=== PATIENT | female | born 1995 | race Caucasian/White ===

== ENCOUNTER 2018-05-14 03:22 | Inpatient (IN) | payer SELFPAY ==
[2018-05-14] MEDS ORDERED: Naloxone HCl 2 mg/2 ml Syringe ONE (03:23)
[2018-05-14] MEDS ORDERED: Propofol 1,000 MG/100 ML VIAL IV ONE (03:32)
[2018-05-14 03:49] LABS: #Basophils 0.2 thou/uL (0.0-0.2); #Eosinphils 0.4 thou/uL (0.0-0.7); #Lymphocytes 4.7 thou/uL (1.20-3.40); #Monocytes 0.7 thou/uL (0.11-0.59); %Basophils 1.3 % (0.0-1.0); %Eosinophils 3.5 % (0.0-10.0); %Lymphocytes 39.1 % (21.0-51.0); %Monocytes 6.1 % (0.0-10.0); Mean Corpuscular HGB CONC 33.4 g/dL (32.0-36.0); Mean Corpuscular Hemoglobin 29.8 pg (27.0-31.0); Mean Corpuscular Volume 89.1 fL (78.0-98.0); Mean Platelet Volume 6.4 fL (7.4-10.4); Platelet Count 445 thou/uL (130-400); RBC Distribution Width 12.2 % (11.5-14.5)
[2018-05-14 04:02] LABS: Bilirubin Negative (Negative); Blood, Urine Negative (Negative); Clarity CLOUDY (Clear); Glucose, Urine (Dipstick) Negative (Negative); Leukocyte Small (Negative); Nitrite Negative (Negative); Pregnancy Test - Urine (BHCG) Negative (Negative); Protein, Urine (Dipstick) 30 mg/dL (Neg-Trace); Specific Gravity, Urine 1.023 (1.002-1.036); pH, Urine 6.5 (5.0-9.0)
[2018-05-14 04:03] LABS: Pregu Control Background? CLEAR/WHITE (CLR/WHITE); Pregu Control Bar Appear? YES (CONTROL BAR); Specific Gravity 1.023 (1.002-1.036)
[2018-05-14 04:05] LABS: Bacteria/HPF None Seen HPF (None Seen); RBC/HPF 0-3 HPF (0-3)
[2018-05-14 04:12] LABS: Pathc Cast-AUWi Flag 3.77 (0-2.49)
[2018-05-14 04:14] LABS: Amphetamine Detected (NotDetected); Barbiturates Screen Not Detected (NotDetected); Benzodiazepine Screen Not Detected (NotDetected); Cocaine Metabolite Screen Not Detected (NotDetected); Medtox Control Line Valid? VALID (VALID); Medtox Reader # READER 4; Methadone Not Detected (NotDetected); Methamphetamine Not Detected (NotDetected); Opiate Screen Not Detected (NotDetected); Oxycodone Screen Not Detected (NotDetected); Phencyclidine (PCP) Not Detected (NotDetected); THC/Cannabinoid Screen Detected (NotDetected); Tricyclic Screen Not Detected (NotDetected)
[2018-05-14 04:19] LABS: Hyaline Casts/LPF 0-3 HYALINE CAST LPF (0-3 Hyaline)
[2018-05-14 04:20] LABS: Other Casts/LPF None Seen LPF (0-3 Hyaline); Oval Fat Bodies/HPF None Seen HPF (None Seen); Renal Epithelial None Seen HPF (0-3); Sperm/HPF None Seen HPF (None Seen); Transitional Epithelial NONE SEEN HPF (0-3); Trichomonas/HPF None Seen HPF (None Seen); Yeast-All Forms None Seen HPF (None Seen)
[2018-05-14 04:23] LABS: Acetaminophen Less than 6.0 mcg/mL (10.0-30.0); Alcohol Less than 10 mg/dL (Less than 10); Salicylate Less than 8.0 mg/dL (15.0-30.0)
[2018-05-14 04:24] LABS: ALT (SGPT) 62 U/L (8-55); AST (SGOT) 37 U/L (5-34); Albumin 4.5 g/dL (3.5-5.0); Alkaline Phosphatase 94 U/L (40-150); Anion Gap 16 mmol/L (10-20); BUN (Urea Nitrogen) 12 mg/dL (7.0-18.7); Bilirubin, Total 0.3 mg/dL (0.2-1.2); Calc. Creatinine Clearance 0 mL/min (70-130); Calcium 10.1 mg/dL (7.8-10.44); Carbon Dioxide 20 mmol/L (22-29); Chloride 105 mmol/L (98-107); Estimated GFR-MDRD 79; Globulin 3.3 g/dL (2.4-3.5); Glucose 177 mg/dL (70-105); Magnesium 2.2 mg/dL (1.6-2.6); Potassium 3.5 mmol/L (3.5-5.1); Protein, Total 7.8 g/dL (6.0-8.3); Sodium 137 mmol/L (136-145)
[2018-05-14 04:31] LABS: Troponin I Less than 0.010 ng/mL (< 0.028)
[2018-05-14 04:41] LABS: Analyzer IN Cardio ER; Base Excess (BEa) -2.7 mEq/L (-2.0 to +3.0); CO2 Tension 28.6 mmHg (35.0-45.0); Calcium, Ionized 1.15 mmol/L (1.12-1.30); Carboxyhemoglobin (COHb) 1.5 gm% (0.0-3.0); Hemoglobin (Hb) 12.5 g/dL (12.0-16.0); O2 Tension (PaO2) 246.6 mmHg (80.0-100.0); Potassium - ABG Lab 3.43 mmol/L (3.70-5.30); pH, Arterial 7.46 (7.35-7.45)
[2018-05-14 05:49] LABS: Puncture Site RFA
[2018-05-14] MEDS ORDERED: Fentanyl 100 MCG/2 ML VIAL ONE (06:56)
[2018-05-14] MEDS ORDERED: Fentanyl 20 mcg/ml (100 ml CADD) IV PRN (07:02)
[2018-05-14 08:14] VITALS: BMI 20.9
[2018-05-14] MEDS ORDERED: Propofol 1,000 MG/100 ML VIAL IV PRN ×2 (09:01→10:12)
[2018-05-14] MEDS ORDERED: Propofol BOLUS 1,000 MG/100 ML VIAL IV PRN ×2 (09:01→10:12)
[2018-05-14] MEDS ORDERED: Sodium Chloride 0.45% 1,000 ML IV SCH (09:15)
[2018-05-14] MEDS ORDERED: CCU Electrolyte Replacement 1 EACH IVPB ONE (09:50)
[2018-05-14] MEDS ORDERED: Norepinephrine 8 MG/0.9% NS 250 ML IVPB PRN (09:50)
[2018-05-14] MEDS ORDERED: Ventilator Sedation Protocol 1 EACH FS ONE (09:52)
[2018-05-14] MEDS ORDERED: Acetaminophen 650 MG Suppository PR PRN (09:52)
[2018-05-14] MEDS ORDERED: Ondansetron HCl/PF 4 MG/2 ML Vial IVP PRN (09:52)
[2018-05-14] MEDS ORDERED: Acetaminophen 325 MG TAB PO PRN (09:52)
[2018-05-14] MEDS ORDERED: Ondansetron ODT 4 MG TAB PO PRN (09:52)
--- NOTE | 2018-05-14 09:55 | RAD ---
FRONTAL VIEW CHEST: Date: 05/14/18 COMPARISON: 11/24/17. INDICATION:' Altered mental status, possible toxic ingestion. FINDINGS: Endotracheal tube is present with tip just above the thoracic inlet. Enteric catheter is seen matilda ing the left abdomen, below field of view. Lungs are clear. No free air seen beneath the hemidiaphrag ms. No effusion or discrete pneumothorax. IMPRESSION: 1. Intubated patient. 2. No consolidation visualized. POS: C
[2018-05-14] MEDS ORDERED: Ventilator Sedation Protocol 1 EACH FS SCH (10:00)
[2018-05-14] MEDS ORDERED: Magnesium 2 GM/NS 0.9% 100 ML 2 GM in Premix Bag 1 BAG IVPB PRN (10:12)
[2018-05-14] MEDS ORDERED: Potassium Chloride 20 MEQ TAB PO PRN (10:12)
[2018-05-14] MEDS ORDERED: Potassium Phosphate 12 MMOL in Sodium Chloride 0.9% 250 ML 250 ML IV PRN (10:12)
[2018-05-14] MEDS ORDERED: Lorazepam 2 MG/ML VIAL SLOW IVP PRN (10:12)
[2018-05-14] MEDS ORDERED: Potassium Chloride 40 MEQ in Sodium Chloride 0.9% 250 ML 250 ML IVPB PRN (10:12)
[2018-05-14] MEDS ORDERED: Potassium Phosphate 9 MMOL in Sodium Chloride 0.9% 100 ML IVPB PRN (10:12)
[2018-05-14] MEDS ORDERED: Fentanyl BOLUS 250 ML IVPB PRN (10:12)
[2018-05-14] MEDS ORDERED: CCU ELECTROLYTE REPLACEMENT PROTOCOL FS PRN (10:12)
[2018-05-14] MEDS ORDERED: Potassium Chloride 40 MEQ in Premix Bag 1 BAG IVPB PRN (10:12)
[2018-05-14] MEDS ORDERED: Potassium Phosphate 15 MMOL in Sodium Chloride 0.9% 250 ML 250 ML IV PRN (10:12)
[2018-05-14] MEDS ORDERED: fentaNYL Citrate/PF 2,000 MCG in Sodium Chloride 0.9% 60 ML IV SCH (10:12)
[2018-05-14] MEDS ORDERED: Magnesium Oxide 400 MG TAB PO PRN ×2 (10:12)
[2018-05-14] MEDS ORDERED: DISCONTINUE PREVIOUS NARCOTIC PAIN MEDICATIONS AND BENZODIAZEPINES FS SCH (10:12)
--- NOTE | 2018-05-14 10:24 | RAD ---
CHEST ONE VIEW: History: 23-year-old female with history of altered mental status, overdose. Check line placement. FINDINGS: NG tube extends into the stomach. A right sided subclavian catheter is noted extending into the super ior vena cava. Endotracheal tube tip is approximately 4.5 cm from the twila. IMPRESSION: NG tube and endotracheal tubes remain in place and stable. Right subclavian catheter placed without p neumothorax or pleural effusion. POS: LUCIA
--- NOTE | 2018-05-14 10:58 | CT ---
PRELIMINARY REPORT/[facility]/EMERGENTY AFTER-HOURS PROCEDURE CT Head Without Intravenous Contrast EXAM DATE/TIME: 05/14/2018 4:55 AM CLINICAL HISTORY: 23 years old, female; Signs and symptoms; Altered mental status/memory loss; Other: Overdose; Patient HX: , 23 yo f presents to ed S/P overdose. Ems reports PT was found by friend overdosed on heroin. E ms reports known heroin use, drug paraphernalia found in room with PT. Ems reports PT was agitated in route, PT vomited in route. TECHNIQUE: Axial computed tomography images of the head/brain without intravenous contrast. COMPARISON: No relevant prior studies available. FINDINGS: Brain: Normal. No hemorrhage. No significant white matter disease. No edema. Ventricles: Normal. No ventriculomegaly. Bones/joints: Normal. No acute fracture. Sinuses: Normal as visualized. No acute sinusitis. Mastoid air cells: Normal as visualized. No mastoid effusion. Soft tissues: Normal. IMPRESSION: No acute intracranial abnormality. Thank you for allowing us to participate in the care of your patient. Dictated and Authenticated by: Sincere Rose MD 05/14/2018 5:22 AM Central Time ([place] & [place]) FINAL REPORT CT HEAD NONCONTRAST Date: 05-14-18 Performed on emergency basis at 0456 hours. History: Altered mental status. Memory loss. FINDINGS: I agree with the preliminary report by Dr. Rose from [facility]. No acute intracranial abno rmalities are demonstrated. Code QA POS: [facility]
--- NOTE | 2018-05-14 11:02 | HP ---
CHIEF COMPLAINT: Patient presents for evaluation of drug overdose. HISTORY OF PRESENT ILLNESS: A 23-year-old female who presents to the ED status post drug overdose. Per electronic medical records, patient was found by the friend and patient was overdosed on some sort of medication, but the medication was not known, but it was said to be that it might be heroin. EMS reports that patient has the history of heroin use in the past and patient was also found with drug paraphernalia in patient's room. Per EMS records, patient was agitated enroute and patient vomited x1. REVIEW OF SYSTEMS: Unable to obtain since patient is intubated. PAST MEDICAL HISTORY: Unable to be obtained, since patient is intubated. PAST SURGICAL HISTORY: Unable to be obtained, since patient is intubated. PSYCH HISTORY: Unable to be obtained, since patient is intubated. FAMILY HISTORY: Unable to be obtained, since patient is intubated. SOCIAL HISTORY: Unable to be obtained, since patient is intubated. ALLERGIES: No known drug allergies can be confirmed, since patient is intubated. CURRENT MEDICATIONS: Unable to be obtained, since patient is intubated. PHYSICAL EXAMINATION: VITAL SIGNS: Blood pressure is 121/74, pulse of 84, respiratory rate of 8, O2 sat of 100 on the ventilator. GENERAL: Patient is intubated, lying in bed. Patient's GCS is 3T. HEENT: Normocephalic, atraumatic. Pupils are pinpoint and reactive to light. Left pupil is more sluggish to react to light. ENT: Patient is intubated. NECK: Trachea is midline. RESPIRATORY: Ventilated lung sounds at the anterior lung fernandez appreciated. CARDIOVASCULAR: Positive S1, S2. Regular rate and rhythm. No murmurs, no gallops or rubs appreciated. ABDOMEN: Soft, nontender, nondistended. No pulsatile masses appreciated. EXTREMITIES: Patient is intubated and is not moving his extremities spontaneously. However, patient has good pulses at dorsalis pedis and the radial pulse. NEUROLOGIC: Patient has a GCS of 3T. A 12-lead EKG shows sinus rhythm with a rate of 85. ED COURSE: Patient was given fentanyl injections of normal saline, propofol. CT scan of the head showed no intracranial pathology noted. Chest x-ray, patient is intubated. No consolidation visualized. LABORATORY DATA: WBC is 12.0, hemoglobin is 14, hematocrit is 41.9, platelet count is 445. ABG: pH 7.46, pCO2 of 28, pO2 was 246. Sodium 137, potassium is 3.5, chloride 105, carbon dioxide 20, anion gap is 16, BUN is 12, creatinine is 0.89, glucose is 177, calcium is 10.1. Magnesium is 2.2. AST 37, ALT 62. Urinalysis urine nitrite is negative. Urine leuko esterase is small. Toxicology, positive for amphetamines and cannabinoids. ASSESSMENT AND PLAN: This is a 23-year-old female in acute respiratory failure likely hypoxemia. At this point, patient has been intubated on the vent. Patient has been sent to the ICU to be managed. We will continue to monitor the patient closely. 1. Encephalopathy, most likely toxic metabolic. Patient has a positive amphetamine based on tox report. At this time, we will monitor the patient and we will continue supportive care. 2. Deep venous thrombosis and gastrointestinal prophylaxis. MTDD
[2018-05-14] MEDS: Sodium Chloride 0.9% 1,000 ML IV SCH ×2 (11:05→19:45)
--- NOTE | 2018-05-14 15:58 | PDOC.EVN ---
Event Note - Event Note Event Note: Pt lizzie and examined. chart reviewed Not very willing for conversation.extubated an hour ago before this visit. cont supportive care. will follow.
--- NOTE | 2018-05-14 19:30 | CON ---
DATE OF CONSULTATION: 05/14/2018 HISTORY OF PRESENT ILLNESS: Ben is a 23-year-old found down at home. She has a reported history o f heroin use. She was intubated. I was consulted because of her presence in the ICU. It is interesting that her drug screen was positive for amphetamines and cannabinoids, but not positi ve for opiates. When I saw this morning, she was starting to awaken. PAST MEDICAL HISTORY: Not obtainable. FAMILY HISTORY: Not obtainable. SOCIAL HISTORY Not obtainable. REVIEW OF SYSTEMS: Not obtainable. PHYSICAL EXAMINATION: VITAL SIGNS: Blood pressure this morning was 103/59, heart rate was in the 70s, respiratory rate was in the teens. HEENT: Pupils react. Sclerae is anicteric. She moved all 4 extremities. She was actually trying t o extubate herself when I saw her on a propofol drip. LUNGS: Clear. HEART: Regular rhythm. ABDOMEN: Soft. EXTREMITIES: No clubbing, cyanosis or edema. IMPRESSION: Drug overdose. Once she was a candidate for extubation, this has been done successfully . She wanted to sign out AMA. Since she was on IV sedative drugs all night, I have told her that e cannot sign out against medical advice. It is unclear what she really took, it is also unclear if this was a suicide attempt, so [facility] should evaluated her before she leaves in my opinion. Critical care time was 30 minutes.
[2018-05-14] MEDS ORDERED: Famotidine/PF 20 mg/2ml Vial SLOW IVP SCH (21:00)
[2018-05-15 03:02] VITALS: TEMP 98
[2018-05-15] MEDS: Sodium Chloride 0.9% 1,000 ML IV SCH (05:54)
--- NOTE | 2018-05-17 03:00 | DIS ---
DATE OF ADMISSION: 05/14/2018 DATE OF DISCHARGE: DISCHARGE DISPOSITION: The patient left AMA. HISTORY OF PRESENTING ILLNESS AND BRIEF HOSPITAL COURSE: Ms. Contreras is a 23-year-old female who was a dmitted on 05/14/2018 night after being found unresponsive with suspected heroin overdose. She was i ntubated and was admitted to ICU. She was seen by Pulmonary Medicine and was extubated shortly. She demanded to leave AMA, but was monitored. She was just taken off sedation. Eventually, she signed out AMA. There was no suicide attempt, so [facility] evaluation could not be completed as the patient left AMA. Please see admission history and physical for further detail.
== END 2018-05-15 06:07 | disposition home or self-care (01) | DRG 917 ==
LOC: ERS 03:22 → EEVIPCON 03:22 → EDBD 03:22 → CCU 05:35 → EEVIPCON 05:35
PROVIDERS: ADMIT Internal Medicine; ATTEND Internal Medicine
PROC: 0BH17EZ Insertion of Endotracheal Airway into Trachea, Via Natural or Artificial Opening (ICD-10-PCS; principal; 2018-05-14)
PROC: 5A1935Z Respiratory Ventilation, Less than 24 Consecutive Hours (ICD-10-PCS; 2018-05-14)
DX: T50.901A Poisoning by unspecified drugs, medicaments and biological substances, accidental (unintentional), initial encounter (principal); J96.01 Acute respiratory failure with hypoxia; G92 Toxic encephalopathy
CPT/HCPCS: 36415; 70450; 71045; 80053; 80306; 80307; 81003; 81015; 81025; 82553; 82805; 83735; 84484; 85025; 87086; 93005; 94002; J2270; J2310; J2704; J3010; J7050

== ENCOUNTER 2018-12-07 09:36 | Emergency (ER) | payer SELFPAY ==
[2018-12-07] MEDS ORDERED: Ondansetron ODT 4 MG TAB ONE (09:57)
== END 2018-12-07 10:31 | disposition left against medical advice (07) ==
LOC: ERS 09:36
DX: Z53.21 Procedure and treatment not carried out due to patient leaving prior to being seen by health care provider (principal)
CPT/HCPCS: Q0162